=== PATIENT | male | born 1945 | race African-American/Black ===

== ENCOUNTER 2024-02-11 02:23 | Emergency (ER) | payer MEDICARE, OTHER ==
[~2024-02-11] VITALS: Ht 170.2 cm; Wt 63.5 kg
[2024-02-11 03:22] LABS: BASOPHILS % (AUTO) 0.4 % (0.0-2.0); EOSINOPHILS # (AUTO) 0.2 K/uL (0.0-0.7); HEMATOCRIT 33 % (39-51); LYMPHOCYTES # (AUTO) 2.2 K/uL (0.8-4.8); LYMPHOCYTES % (AUTO) 56.5 % (20.0-44.0); MEAN CORPUSCULAR HEMOGLOBIN 29 PG (26.0-33.0); MEAN CORPUSCULAR HGB CONC 34 g/dl (31.0-36.0); MEAN CORPUSCULAR VOLUME 85 fL (80-96); MONOCYTES # (AUTO) 0.4 K/uL (0.1-1.30); MONOCYTES % (AUTO) 9.4 % (2.0-12.0); NEUTROPHILS # (AUTO) 1.1 K/uL (1.8-8.9); NEUTROPHILS % (AUTO) 28.7 % (43.0-81.0); PLATELET COUNT (AUTO) 197 K/uL (150-450); RED BLOOD CELL COUNT(AUTO) 3.84 MIL/uL (4.5-6.0); RED CELL DISTRIBUTION WIDTH 16.4 % (11.5-15.0); WHITE BLOOD COUNT (AUTO) 3.9 K/uL (4.3-11.0)
[2024-02-11 03:30] LABS: CALCIUM, SERUM 8.4 mg/dL (8.5-10.1); CARBON DIOXIDE 28 mmol/L (21-32); CHLORIDE 105 mmol/L (98-107); CREATININE 1.2 mg/dL (0.6-1.3); GLUCOSE 101 mg/dL (74-106); POTASSIUM 3.9 mmol/L (3.5-5.1); SODIUM SERUM 140 mmol/L (136-145); UREA NITROGEN, BLOOD 15 mg/dL (7-18)
[2024-02-11 03:37] LABS: LACTIC ACID 0.8 mmol/L (0.4-2.0)
[2024-02-11 03:42] LABS: ALANINE AMINOTRANSFERASE 16 U/L (12-78); ALBUMIN 2.8 g/dL (3.4-5.0); ALKALINE PHOSPHATASE 102 U/L (46-116); ASPARTATE AMINOTRANSFERASE 12 U/L (15-37); BILIRUBIN,TOTAL 0.3 mg/dL (0.2-1.0); NT-PRO BNP 133 pg/mL (0-125); TOTAL PROTEIN, SERUM 6.6 g/dL (6.4-8.2)
[2024-02-11 07:19] VITALS: BP 120/66; TEMP 97.8; O2SAT 98
== END 2024-02-11 09:02 ==
LOC: ER 02:30
DX: M79.604 Pain in right leg (principal); G93.41 Metabolic encephalopathy; I12.0 Hypertensive chronic kidney disease with stage 5 chronic kidney disease or end stage renal disease; N18.6 End stage renal disease; F20.9 Schizophrenia, unspecified
CPT/HCPCS: 36415; 71045-TC; 80053-TC; 83605-TC; 83880; 84484-TC; 85025-TC; 93971-TC

== ENCOUNTER 2024-05-29 14:43 | Emergency (ER) | payer MEDICARE, OTHER ==
[~2024-05-29] VITALS: Ht 167.6 cm; Wt 59.0 kg
[2024-05-29 15:20] LABS: BASOPHILS % (AUTO) 0.6 % (0.0-2.0); EOSINOPHILS # (AUTO) 0.2 K/uL (0.0-0.7); EOSINOPHILS % (AUTO) 5.1 % (0.0-6.0); HEMATOCRIT 38 % (39-51); HEMOGLOBIN 12.3 g/dL (13.5-17.5); LYMPHOCYTES # (AUTO) 2.4 K/uL (0.8-4.8); LYMPHOCYTES % (AUTO) 52.9 % (20.0-44.0); MEAN CORPUSCULAR HEMOGLOBIN 29 PG (26.0-33.0); MEAN CORPUSCULAR HGB CONC 33 g/dl (31.0-36.0); MEAN CORPUSCULAR VOLUME 88 fL (80-96); MONOCYTES # (AUTO) 0.5 K/uL (0.1-1.30); MONOCYTES % (AUTO) 10.9 % (2.0-12.0); NEUTROPHILS # (AUTO) 1.4 K/uL (1.8-8.9); NEUTROPHILS % (AUTO) 30.5 % (43.0-81.0); PLATELET COUNT (AUTO) 200 K/uL (150-450); RED BLOOD CELL COUNT(AUTO) 4.26 MIL/uL (4.5-6.0); RED CELL DISTRIBUTION WIDTH 15.1 % (11.5-15.0); WHITE BLOOD COUNT (AUTO) 4.5 K/uL (4.3-11.0)
[2024-05-29 15:28] LABS: CALCIUM, SERUM 9.1 mg/dL (8.5-10.1); CARBON DIOXIDE 33 mmol/L (21-32); CHLORIDE 104 mmol/L (98-107); CREATININE 1.4 mg/dL (0.6-1.3); GLUCOSE 84 mg/dL (74-106); POTASSIUM 4.7 mmol/L (3.5-5.1); SODIUM SERUM 142 mmol/L (136-145); UREA NITROGEN, BLOOD 14 mg/dL (7-18)
[2024-05-29 15:38] LABS: ALANINE AMINOTRANSFERASE 27 U/L (12-78); ALBUMIN 3.5 g/dL (3.4-5.0); ALKALINE PHOSPHATASE 135 U/L (46-116); ASPARTATE AMINOTRANSFERASE 19 U/L (15-37); BILIRUBIN,DIRECT 0.1 mg/dL (0.0-0.2); BILIRUBIN,TOTAL 0.3 mg/dL (0.2-1.0); LIPASE 34 U/L (16-77); TOTAL PROTEIN, SERUM 7.3 g/dL (6.4-8.2)
[2024-05-29 19:23] VITALS: BP 110/68; TEMP 98; O2SAT 98
== END 2024-05-29 19:23 ==
LOC: ER 14:46
DX: R10.11 Right upper quadrant pain (principal); F20.9 Schizophrenia, unspecified; I12.0 Hypertensive chronic kidney disease with stage 5 chronic kidney disease or end stage renal disease; N18.6 End stage renal disease
CPT/HCPCS: 36415; 76705-TC; 80048-TC; 80076-TC; 83690-TC; 85025-TC

== ENCOUNTER 2024-08-24 12:18 | Inpatient (IN) | payer MEDICARE, OTHER ==
[~2024-08-24] VITALS: Ht 167.6 cm; Wt 57.2 kg
[2024-08-24] MEDS ORDERED: NITROGLYCERIN 0.4 MG/TAB BOTTLE SL ONE (12:30)
[2024-08-24 12:51] LABS: BASOPHILS % (AUTO) 0.5 % (0.0-2.0); EOSINOPHILS # (AUTO) 0.2 K/uL (0.0-0.7); EOSINOPHILS % (AUTO) 4.6 % (0.0-6.0); HEMATOCRIT 39 % (39-51); HEMOGLOBIN 12.6 g/dL (13.5-17.5); LYMPHOCYTES # (AUTO) 2.2 K/uL (0.8-4.8); LYMPHOCYTES % (AUTO) 50.2 % (20.0-44.0); MEAN CORPUSCULAR HEMOGLOBIN 29 PG (26.0-33.0); MEAN CORPUSCULAR HGB CONC 33 g/dl (31.0-36.0); MEAN CORPUSCULAR VOLUME 89 fL (80-96); MONOCYTES # (AUTO) 0.4 K/uL (0.1-1.30); MONOCYTES % (AUTO) 10.5 % (2.0-12.0); NEUTROPHILS # (AUTO) 1.5 K/uL (1.8-8.9); NEUTROPHILS % (AUTO) 34.2 % (43.0-81.0); PLATELET COUNT (AUTO) 191 K/uL (150-450); RED BLOOD CELL COUNT(AUTO) 4.34 MIL/uL (4.5-6.0); RED CELL DISTRIBUTION WIDTH 15.3 % (11.5-15.0); WHITE BLOOD COUNT (AUTO) 4.3 K/uL (4.3-11.0)
[2024-08-24 13:10] LABS: CALCIUM, SERUM 9.1 mg/dL (8.5-10.1); CARBON DIOXIDE 28 mmol/L (21-32); CHLORIDE 104 mmol/L (98-107); CREATININE 1.7 mg/dL (0.6-1.3); GLUCOSE 115 mg/dL (74-106); POTASSIUM 4.1 mmol/L (3.5-5.1); SODIUM SERUM 142 mmol/L (136-145); UREA NITROGEN, BLOOD 26 mg/dL (7-18)
[2024-08-24] MEDS ORDERED: ASPIRIN 325 MG TABLET ONE (13:20)
[2024-08-24 13:23] LABS: NT-PRO BNP 93 pg/mL (0-125)
[2024-08-24] MEDS: ASPIRIN 325 MG TABLET PO ONE (13:32)
[2024-08-24] MEDS ORDERED: MECL-159 PO (14:23)
[2024-08-24] MEDS ORDERED: [UNRECOGNIZED DRUG - CODE] PO (14:23)
[2024-08-24] MEDS ORDERED: FAMO20TA29 PO (14:23)
[2024-08-24] MEDS ORDERED: CLON0.1T PO (14:23)
[2024-08-24] MEDS ORDERED: SERT50TA12 PO (14:23)
[2024-08-24] MEDS ORDERED: TRAZ-252 PO (14:23)
[2024-08-24] MEDS ORDERED: DICL100G34 TP (14:23)
[2024-08-24] MEDS ORDERED: MULT-213 PO (14:23)
[2024-08-24] MEDS ORDERED: GABA-532 PO (14:23)
[2024-08-24] MEDS ORDERED: HYDROCODONE/APAP 5/325MG TABLET PO PRN (15:00)
[2024-08-24] MEDS ORDERED: Z GUARD REMEDY 4 OZ OINT TP PRN (15:00)
[2024-08-24] MEDS ORDERED: MAG HYDROX/AL HYDROX/SIMETH 30 ML UDC PO PRN (15:00)
[2024-08-24] MEDS ORDERED: ACETAMINOPHEN 325 MG TABLET PO PRN (15:00)
[2024-08-24] MEDS ORDERED: MECLIZINE HCL 25 MG TABLET PO PRN (15:00)
[2024-08-24] MEDS: ENOXAPARIN SODIUM 30 MG/0.3 ML DISP.SYRIN SQ SCH (15:00)
[2024-08-24] MEDS: NITROGLYCERIN 0.4 MG/TAB BOTTLE SL ONE (15:00)
[2024-08-24] MEDS ORDERED: CLONIDINE HCL 0.1 MG TABLET PO PRN (15:00)
[2024-08-24] MEDS ORDERED: ONDANSETRON HCL/PF 4 MG/2 ML VIAL IVP PRN (15:00)
[2024-08-24] MEDS ORDERED: MAGNESIUM HYDROXIDE 30 ML UDC PO PRN (15:00)
[2024-08-24] MEDS ORDERED: ZOLPIDEM TARTRATE 5 MG TABLET PO PRN (15:00)
[2024-08-24 17:42] VITALS: BP 100/72; TEMP 97.7; O2SAT 97
[2024-08-24 20:00] VITALS: BP 91/51; TEMP 97.7; O2SAT 100
[2024-08-24] MEDS: IV NS 0.9% 1,000 ML IV PRN (20:03)
[2024-08-24] MEDS: FAMOTIDINE (20 MG) 20 MG TABLET PO SCH (22:25)
[2024-08-24] MEDS: SERTRALINE HCL 50 MG TABLET PO SCH (22:25)
[2024-08-24] MEDS: TRAZODONE 50 MG TABLET PO SCH (22:25)
[2024-08-25] VITALS: BP 92/54; TEMP 97.5; O2SAT 99
[2024-08-25 04:00] VITALS: BP 108/68; TEMP 97.5; O2SAT 98
[2024-08-25 07:10] LABS: BASOPHILS % (AUTO) 0.4 % (0.0-2.0); EOSINOPHILS # (AUTO) 0.2 K/uL (0.0-0.7); EOSINOPHILS % (AUTO) 5.5 % (0.0-6.0); HEMATOCRIT 33 % (39-51); HEMOGLOBIN 11.1 g/dL (13.5-17.5); LYMPHOCYTES # (AUTO) 2.1 K/uL (0.8-4.8); LYMPHOCYTES % (AUTO) 55.8 % (20.0-44.0); MEAN CORPUSCULAR HEMOGLOBIN 29 PG (26.0-33.0); MEAN CORPUSCULAR HGB CONC 34 g/dl (31.0-36.0); MEAN CORPUSCULAR VOLUME 87 fL (80-96); MONOCYTES # (AUTO) 0.4 K/uL (0.1-1.30); MONOCYTES % (AUTO) 11.2 % (2.0-12.0); NEUTROPHILS % (AUTO) 27.1 % (43.0-81.0); PLATELET COUNT (AUTO) 166 K/uL (150-450); RED BLOOD CELL COUNT(AUTO) 3.79 MIL/uL (4.5-6.0); RED CELL DISTRIBUTION WIDTH 14.9 % (11.5-15.0); WHITE BLOOD COUNT (AUTO) 3.8 K/uL (4.3-11.0)
[2024-08-25 07:31] LABS: CALCIUM, SERUM 7.9 mg/dL (8.5-10.1); CARBON DIOXIDE 27 mmol/L (21-32); CHLORIDE 107 mmol/L (98-107); CREATININE 1.3 mg/dL (0.6-1.3); GLUCOSE 91 mg/dL (74-106); MAGNESIUM 1.9 mg/dL (1.8-2.4); PHOSPHORUS 3.8 mg/dL (2.5-4.9); POTASSIUM 4.2 mmol/L (3.5-5.1); SODIUM SERUM 142 mmol/L (136-145); UREA NITROGEN, BLOOD 22 mg/dL (7-18)
[2024-08-25 08:00] VITALS: BP 111/70; TEMP 97.7; O2SAT 99
[2024-08-25] MEDS: ASPIRIN 81 MG TAB.CHEW PO SCH (08:25)
[2024-08-25] MEDS: MULTIVITAMINS,THERAGRAN 1 UDTAB TABLET PO SCH (08:25)
[2024-08-25 09:52] LABS: IRON, SERUM 47 ug/dl (50-175); TOTAL IRON BINDING CAPACITY 302 ug/dl (250-450)
[2024-08-25 10:11] LABS: FERRITIN 66 ng/mL (8-388)
[2024-08-25 12:00] VITALS: BP 121/78; TEMP 97.5; O2SAT 95
[2024-08-25 16:00] VITALS: BP 89/78; TEMP 97.5; O2SAT 95
[2024-08-25 20:00] VITALS: BP 111/64; TEMP 98.1; O2SAT 95
[2024-08-26] VITALS: BP 107/67; TEMP 98.5; O2SAT 99
[2024-08-26 04:00] VITALS: BP 103/84; TEMP 97.9; O2SAT 99
[2024-08-26 08:05] VITALS: BP 97/68; TEMP 97.9; O2SAT 97
[2024-08-26 08:20] LABS: CALCIUM, SERUM 7.9 mg/dL (8.5-10.1); CREATININE 1.2 mg/dL (0.6-1.3); POTASSIUM 4.2 mmol/L (3.5-5.1)
[2024-08-26] MEDS ORDERED: IOHEXOL-350 100 ML VIAL IV ONE (09:41)
[2024-08-26] MEDS ORDERED: CT SWABBABLE VALVE TRANS SET 1 EA INFUS.SET MC ONE (09:41)
[2024-08-26] MEDS ORDERED: IV NS 0.9% 250 ML IV ONE (09:42)
[2024-08-26] MEDS ORDERED: METOPROLOL TARTRATE INJ 5 MG/5 ML AMPUL IVP PRN (10:00)
[2024-08-26] MEDS: NITROGLYCERIN 0.4 MG/TAB BOTTLE SL ONE (10:22)
[2024-08-26] MEDS ORDERED: NITROGLYCERIN 0.4 MG/TAB BOTTLE ONE (10:40)
[2024-08-26 12:05] VITALS: BP 106/64; TEMP 98.2; O2SAT 96
[2024-08-26 16:04] VITALS: BP 130/80; TEMP 98.1; O2SAT 99
[2024-08-26 20:00] VITALS: BP 124/69; TEMP 97.9; O2SAT 99
[2024-08-27] VITALS: BP 105/68; TEMP 98.1; O2SAT 99
[2024-08-27 04:00] VITALS: BP 112/74; TEMP 97.7; O2SAT 99
[2024-08-27 08:00] VITALS: BP 111/70; TEMP 97.9; O2SAT 98
[2024-08-27] MEDS: ATORVASTATIN 10 MG TABLET PO SCH (08:24)
[2024-08-27 08:31] LABS: TRIGLYCERIDES 91 mg/dL (30-150)
[2024-08-27 08:32] LABS: CHOLESTEROL 172 mg/dL (<200); HDL CHOLESTEROL 41 mg/dL (40-60); LDL 111 mg/dL (0-99)
[2024-08-27 12:02] LABS: THYROID STIMULATING HORMONE 4.006 uIU/mL (0.358-3.74)
[2024-08-27] MEDS ORDERED: ATOR20TA PO (13:09)
== END 2024-08-27 18:05 | DRG 311 ==
LOC: ER 12:24 → TELE1 15:31 → MEDSG1 08-27 08:15
PROVIDERS: ADMIT Nurse Practitioner Acute Care
DX: I20.9 Angina pectoris, unspecified (principal); N17.0 Acute kidney failure with tubular necrosis; E86.0 Dehydration; K21.9 Gastro-esophageal reflux disease without esophagitis; E78.5 Hyperlipidemia, unspecified; F17.210 Nicotine dependence, cigarettes, uncomplicated; F32.A Depression, unspecified; D64.9 Anemia, unspecified; Z71.6 Tobacco abuse counseling; I12.9 Hypertensive chronic kidney disease with stage 1 through stage 4 chronic kidney disease, or unspecified chronic kidney disease; N18.9 Chronic kidney disease, unspecified
CPT/HCPCS: 36415; 71045-TC; 75574; 80048-TC; 80061-TC; 82728-TC; 83540-TC; 83735-TC; 83880; 84100-TC; 84443-TC; 84484-TC; 85025-TC; 93307-TC; 97110-TC; 97530-TC; G0378; J1650; J7030; J7050; Q9967

== ENCOUNTER 2025-01-22 10:12 | Emergency (ER) | payer MEDICARE, OTHER ==
[~2025-01-22] VITALS: Ht 167.6 cm; Wt 65.8 kg
[~2025-01-22 10:12] MED LIST: ATOR20TA PO; CLON0.1T PO; DICL100G34 TP; FAMO20TA29 PO; GABA-532 PO; MECL-159 PO; MULT-213 PO; SERT50TA12 PO; TRAZ-252 PO; [UNRECOGNIZED DRUG - CODE] PO
[2025-01-22 10:53] LABS: BASOPHILS % (AUTO) 0.4 % (0.0-2.0); EOSINOPHILS # (AUTO) 0.2 K/uL (0.0-0.7); EOSINOPHILS % (AUTO) 4.4 % (0.0-6.0); HEMATOCRIT 39 % (39-51); HEMOGLOBIN 12.5 g/dL (13.5-17.5); LYMPHOCYTES # (AUTO) 2.1 K/uL (0.8-4.8); MEAN CORPUSCULAR HEMOGLOBIN 30 PG (26.0-33.0); MEAN CORPUSCULAR HGB CONC 32 g/dl (31.0-36.0); MEAN CORPUSCULAR VOLUME 93 fL (80-96); MONOCYTES # (AUTO) 0.4 K/uL (0.1-1.30); MONOCYTES % (AUTO) 9.2 % (2.0-12.0); NEUTROPHILS # (AUTO) 1.7 K/uL (1.8-8.9); PLATELET COUNT (AUTO) 144 K/uL (150-450); RED BLOOD CELL COUNT(AUTO) 4.22 MIL/uL (4.5-6.0); RED CELL DISTRIBUTION WIDTH 16.3 % (11.5-15.0); WHITE BLOOD COUNT (AUTO) 4.4 K/uL (4.3-11.0)
[2025-01-22] MEDS: IV NS 0.9% 500 ML BAG IV ONE (11:00)
[2025-01-22 11:01] LABS: CARBON DIOXIDE 27 mmol/L (21-32); CHLORIDE 107 mmol/L (98-107); CREATININE 1.7 mg/dL (0.6-1.3); GLUCOSE 104 mg/dL (74-106); LIPASE 32 U/L (16-77); POTASSIUM 4.4 mmol/L (3.5-5.1); SODIUM SERUM 141 mmol/L (136-145); UREA NITROGEN, BLOOD 18 mg/dL (7-18)
[2025-01-22] MEDS: ONDANSETRON HCL/PF 4 MG/2 ML VIAL IVP ONE (11:05)
[2025-01-22] MEDS ORDERED: ONDANSETRON HCL/PF 4 MG/2 ML VIAL ONE (11:31)
[2025-01-22 12:30] LABS: APPEARANCE,URINE CLEAR (CLEAR); BILIRUBIN,URINE NEGATIVE (NEGATIVE); BLOOD, URINE NEGATIVE Ery/uL (NEGATIVE); COLOR,URINE YELLOW (YELLOW); KETONES,URINE NEGATIVE (NEGATIVE); LEUKOCYTE ESTERASE ,URINE NEGATIVE (NEGATIVE); NITRITE, URINE NEGATIVE (NEGATIVE); PROTEIN,URINE NEGATIVE (NEGATIVE); UGLUCOSE NEGATIVE (NEGATIVE)
[2025-01-22 12:47] LABS: ADD URINE CULTURE NO; BACTERIA,URINE Rare /HPF (None Seen); RBC,URINE 0-2 /HPF (0-2); SQUAMOUS EPITHELIAL CELL,UR 0-2 /HPF (None Seen); WBC,URINE 0-2 /HPF (0-3)
[2025-01-22] MEDS ORDERED: ONDA4TAB5 PO (13:30)
[2025-01-22] MEDS ORDERED: POLY17PO4 PO (13:30)
[2025-01-22 13:52] LABS: BILIRUBIN,TOTAL 0.4 mg/dL (0.2-1.0); TOTAL PROTEIN, SERUM 7.6 g/dL (6.4-8.2)
[2025-01-22 14:02] VITALS: BP 126/84; TEMP 98.1; O2SAT 96
[2025-01-22 14:02] LABS: BILIRUBIN,DIRECT 0.1 mg/dL (0.0-0.2)
[2025-01-22 14:04] LABS: ALBUMIN 3.5 g/dL (3.4-5.0)
== END 2025-01-22 14:02 ==
LOC: ER 10:22
DX: K59.00 Constipation, unspecified (principal); R10.84 Generalized abdominal pain; R11.2 Nausea with vomiting, unspecified; I10 Essential (primary) hypertension; Z79.899 Other long term (current) drug therapy
CPT/HCPCS: 99285; 74176; 96374; 71045; 93005; 85025; 80048; 83690; 80076; 81001; 36415; 84484; 82962; J2405; J7040

== ENCOUNTER 2025-04-21 10:48 | Emergency (ER) | payer MEDICARE, OTHER ==
[~2025-04-21] VITALS: Ht 175.3 cm; Wt 79.4 kg
[~2025-04-21 10:48] MED LIST changes: +ONDA4TAB5 PO; +POLY17PO4 PO
[2025-04-21 11:27] LABS: APPEARANCE,URINE CLEAR (CLEAR); BLOOD, URINE Trace-intact Ery/uL (NEGATIVE); LEUKOCYTE ESTERASE ,URINE Negative (NEGATIVE); UGLUCOSE Negative (NEGATIVE)
[2025-04-21 11:30] LABS: NITRITE, URINE NEGATIVE (NEGATIVE)
[2025-04-21 11:31] LABS: ADD URINE CULTURE NO; SQUAMOUS EPITHELIAL CELL,UR 0-2 /HPF (None Seen)
[2025-04-21 12:26] LABS: RED BLOOD CELL COUNT(AUTO) 4.02 MIL/uL (4.5-6.0); RED CELL DISTRIBUTION WIDTH 15.3 % (11.5-15.0); WHITE BLOOD COUNT (AUTO) 4.6 K/uL (4.3-11.0)
[2025-04-21 12:28] LABS: PLATELET COUNT (AUTO) 149 K/uL (150-450)
[2025-04-21 12:34] LABS: CALCIUM, SERUM 8.4 mg/dL (8.5-10.1); CREATININE 1.4 mg/dL (0.6-1.3); SODIUM SERUM 137 mmol/L (136-145); UREA NITROGEN, BLOOD 18 mg/dL (7-18)
[2025-04-21 15:06] VITALS: BP 130/90; TEMP 98.5; O2SAT 97
== END 2025-04-21 15:07 ==
LOC: ER 11:07
DX: R30.0 Dysuria (principal); K59.00 Constipation, unspecified; E78.5 Hyperlipidemia, unspecified; F20.9 Schizophrenia, unspecified; I10 Essential (primary) hypertension; K62.89 Other specified diseases of anus and rectum; Z79.899 Other long term (current) drug therapy; Z87.448 Personal history of other diseases of urinary system
CPT/HCPCS: 36415; 80048-TC; 81001; 85025-TC

== ENCOUNTER 2025-04-23 10:03 | Emergency (ER) | payer MEDICARE, OTHER ==
[~2025-04-23] VITALS: Ht 175.3 cm; Wt 79.4 kg
[2025-04-23 12:15] VITALS: BP 139/84; TEMP 98.2; O2SAT 97
== END 2025-04-23 12:20 | disposition home or self-care (01) ==
LOC: ER 10:17
DX: Z46.6 Encounter for fitting and adjustment of urinary device (principal); E78.5 Hyperlipidemia, unspecified; I11.9 Hypertensive heart disease without heart failure; F20.9 Schizophrenia, unspecified; Z79.899 Other long term (current) drug therapy